=== PATIENT | female | born 1945 | race Caucasian/White ===

== ENCOUNTER → 2016-03-07 | Outpatient (CLI) | payer OTHER ==
--- NOTE | 2016-03-07 14:25 | DIAGNOSTIC IMAGING REPORT ---
I-131 THERAPY FOR HYPERTHYROIDISM CLINICAL HISTORY: Hyperthyroidism. Multinodular goiter. COMPARISON STUDY: Outside ultrasound dated 09/27/2010. Outside thyroid scan dated 02/12/2016 FINDINGS: The risks of procedure were explained to the patient and informed consent was obtained. Appropriate postprocedure precautions were explained the patient. The patient expressed good understanding. The patient was treated with an oral capsule containing 29.7 mCi of I-131. The patient will be followed up by Dr. Cain. IMPRESSION: Initial hyperthyroid therapy utilizing 29.7 mCi of I-131. Electronically signed by: Aureliano Luz M.D. 03/07/2016 2:24 PM Dictated Date/Time: 03/07/2016 2:22 PM
== END | disposition home or self-care (01) ==
LOC: C.NUCL 09:55
PROVIDERS: ATTEND Internal Medicine Endocrinology, Diabetes & Metabolism
DX: E04.9 Nontoxic goiter, unspecified (principal); E05.90 Thyrotoxicosis, unspecified without thyrotoxic crisis or storm

== ENCOUNTER → 2016-05-28 | Outpatient (CLI) | payer OTHER ==
[2016-05-28 17:07] LABS: THYROID STIMULATING HORMONE 0.012 uIu/ml (0.300-4.500)
== END | disposition home or self-care (01) ==
LOC: C.LAB1850 15:08
PROVIDERS: ATTEND Internal Medicine Endocrinology, Diabetes & Metabolism
DX: E05.90 Thyrotoxicosis, unspecified without thyrotoxic crisis or storm (principal); E04.9 Nontoxic goiter, unspecified

== ENCOUNTER → 2016-11-14 | Outpatient (CLI) | payer OTHER ==
--- NOTE | 2016-11-14 09:49 | DIAGNOSTIC IMAGING REPORT ---
I-131 THERAPY CLINICAL HISTORY: Hyperthyroidism. COMPARISON STUDY: I-131 therapy March 25, 2016. PROCEDURE: Patient was previously treated for hyperthyroidism on March 07, 2016. Persistent hyperthyroidism was noted and therefore the patient presents today for retreatment. The risks of the procedure were explained to the patient and informed consent was obtained. Discussed risks included risk of undertreatment, overtreatment and cancer induction as well as risk to close contacts. The patient agreed to the procedure. The patient ingested 30.6 mCi of I-131 orally at 9:00 AM on November 14, 2016. IMPRESSION: Treatment with 30.6 mCi of I-131 orally. Electronically signed by: Ruben Cintron M.D. 11/14/2016 9:48 AM Dictated Date/Time: 11/14/2016 9:46 AM
== END | disposition home or self-care (01) ==
LOC: C.NUCL 08:36
PROVIDERS: ATTEND Internal Medicine Endocrinology, Diabetes & Metabolism
DX: E05.90 Thyrotoxicosis, unspecified without thyrotoxic crisis or storm (principal)